=== PATIENT | female | born 2000 | race African-American/Black ===

== ENCOUNTER 2021-06-09 16:05 | Emergency (ER) | payer OTHER ==
[2021-06-09 16:12] VITALS: BP 144/84
[2021-06-09 17:46] LABS: BASOPHILS % (AUTO) 0.6 %; EOSINOPHILS # (AUTO) 0.1 10^3/uL (0.0-0.7); EOSINOPHILS % (AUTO) 1.6 %; HCT - HEMATOCRIT 38.8 % (37.0-47.0); HGB - HEMOGLOBIN 12.6 g/dL (12.0-16.0); LYMPHOCYTES # (AUTO) 1.8 10^3/uL (1.5-3.5); LYMPHOCYTES % (AUTO) 26.7 %; MEAN CORPUSCULAR HEMOGLOBIN 30.4 pg (27.0-31.0); MEAN CORPUSCULAR HGB CONC 32.5 g/dL (32.0-36.0); MEAN CORPUSCULAR VOLUME 93.7 fL (81.0-99.0); MEAN PLATELET VOLUME 10.5 fL (7.9-10.8); MONOCYTES # (AUTO) 0.6 10^3/uL (0.0-1.0); MONOCYTES % (AUTO) 8.5 %; NEUTROPHILS # (AUTO) 4.2 10^3/uL (1.5-6.6); NEUTROPHILS % (AUTO) 62.5 %; PLT - PLATELET COUNT 274 10^3/uL (130-450); RED BLOOD COUNT 4.14 10^6/uL (4.20-5.40); RED CELL DISTRIBUTION WIDTH 11.9 % (12.0-15.0); WHITE BLOOD COUNT 6.8 x10^3/uL (4.8-10.8)
[2021-06-09] MEDS ORDERED: LIDOCAINE VISCOUS 2% 15 ML UDC MM STA (17:57)
[2021-06-09] MEDS ORDERED: ONDANSETRON ODT 4 MG TABLET TL STA (17:57)
--- NOTE | 2021-06-09 17:59 | ED Physician Documentation ---
History of Present Illness - Stated complaint Stated Complaint: SHARP STOMACH PX - Chief complaint Chief Complaint: Abd Pain - Additonal information Additional information: 20-year-old female presents the emergency department for 2 days of epigastric abdominal pain. No nausea or vomiting. No melena. No lower abdominal pain. She reports the pain as nearly constant. She reports that she began taking sertraline for anxiety/depression about 2 weeks ago and noticed that she was getting daily headaches therefore she began taking Excedrin once or twice a day to help control the headaches. She denies tobacco or cannabis use rare alcohol use. Denies possibility of . LMP 2 weeks ago. Review of Systems Constitutional: denies: Fever, Chills Eyes: reports: Reviewed and negative Ears: reports: Reviewed and negative Throat: reports: Reviewed and negative Respiratory: reports: Reviewed and negative GI: reports: Abdominal Pain. denies: Nausea, Vomiting, Constipation, Diarrhea : reports: Reviewed and negative PD PAST MEDICAL HISTORY - Past Medical History Past Medical History: Yes Psych: Anxiety, Post traumatic stress disorder Musculoskeletal: Chronic back pain - Past Surgical History Past Surgical History: No - Present Medications Home Medications: Ambulatory Orders Medication Instructions Recorded Confirmed Pantoprazole [Protonix] 40 mg PO DAILY #30 tablet 06/09/21 Sertraline [Zoloft] 50 mg DAILY 06/09/21 06/09/21 Sucralfate [Carafate] 1 tablet PO ACHS #60 tablet 06/09/21 - Allergies Allergies/Adverse Reactions: Allergies Allergy/AdvReac Type Severity Reaction Status Date / Time No Known Drug Allergies Allergy Verified 06/09/21 16:12 - Social History Does the pt smoke?: No Smoking Status: Never smoker Does the pt have substance abuse?: No PD ED PE NORMAL - General General: Alert and oriented X 3, No acute distress - HEENT HEENT: PERRL - Neck Neck: Supple, no meningeal sign - Cardiac Cardiac: RRR, No murmur - Respiratory Respiratory: Clear bilaterally - Abdomen Abdomen: Normal bowel sounds, Soft, Non distended. No: Non tender (Mild epigastric tenderness without guarding or rebound. Negative Gatica's. No lower abdominal tenderness elicited.) - Back Back: No CVA TTP, No spinal TTP Results - Vitals Vitals: Vital Signs - 24 hr 06/09/21 16:10 Temperature 36.5 C Heart Rate 76 Respiratory 16 Rate Blood Pressure 144/84 H O2 Saturation 99 Oxygen O2 Source Room air - Labs Labs: Laboratory Tests 06/09/21 06/09/21 17:42 17:42 WBC 6.8 RBC 4.14 L Hgb 12.6 Hct 38.8 MCV 93.7 MCH 30.4 MCHC 32.5 RDW 11.9 L Plt Count 274 MPV 10.5 Neut # (Auto) 4.2 Lymph # (Auto) 1.8 Cecil # (Auto) 0.6 Eos # (Auto) 0.1 Baso # (Auto) 0.0 Absolute Nucleated RBC 0.00 Nucleated RBC % 0.0 Sodium 136 Potassium 3.7 Chloride 99 L Carbon Dioxide 28 Anion Gap 9.0 BUN 12 Creatinine 1.1 H Estimated GFR (MDRD) 75 L Glucose 105 H Calcium 9.2 Total Bilirubin 0.6 AST 23 ALT 17 Alkaline Phosphatase 46 Total Protein 7.7 Albumin 4.0 Globulin 3.7 Albumin/Globulin Ratio 1.1 Lipase 25 PD MEDICAL DECISION MAKING - ED course Complexity details: reviewed results, considered differential, d/w patient ED course: 20-year-old female presents the emergency department for evaluation of epigastric abdominal pain that began a week ago when she started taking Excedrin which she began taking for headaches that began after she started taking sertraline. She has no melena or hematochezia. No hematic emesis. She has not had any vomiting but does have some nausea. No pertinent past medical history with exception of the anxiety/depression. No dysuria urgency or frequency. LMP 2 weeks ago. Patient was getting lidocaine and Zofran here in the ER with good resolution of symptoms. Given the lack of focal abdominal tenderness or peritoneal exam imaging is deferred. She will be started on Carafate as well as Protonix. Advise close follow-up with PCP and avoidance of Excedrin moving forward Departure - Departure Disposition: 01 Home, Self Care Clinical Impression: Epigastric pain Condition: Stable Record reviewed to determine appropriate education?: Yes Prescriptions: Sucralfate [Carafate] 1 tablet PO ACHS #60 tablet Pantoprazole [Protonix] 40 mg PO DAILY #30 tablet Comments: Latesha I suspect that the pain you have in your stomach is gastritis most likely secondary to Excedrin overuse that you are taking for your headaches that have developed after starting the sertraline. It is important you follow-up with your primary doctor. Stopping the sertraline may be advised since it is causing headaches. To help with the stomach pain I would like you to fill the prescription for the Protonix and take every day. I would also like you to fill prescription for the Carafate and take at night. This will help coat the stomach. Please schedule an appointment with your primary doctor. If your symptoms are not getting better you may benefit from referral to a paint line production supervisor for an endoscopy or scoping of your stomach.
[2021-06-09 18:02] LABS: ALBUMIN/GLOBULIN RATIO 1.1 (1.0-2.2); BILIRUBIN,TOTAL 0.6 mg/dL (0.2-1.0); CALCIUM 9.2 mg/dL (8.5-10.3); CREATININE 1.1 mg/dL (0.4-1.0); POTASSIUM 3.7 mmol/L (3.5-5.0); TOTAL PROTEIN 7.7 g/dL (6.7-8.2)
== END 2021-06-09 19:01 | disposition home or self-care (01) ==
LOC: ED 16:05
DX: R10.13 Epigastric pain (principal)
CPT/HCPCS: 36415; 80053; 83690; 85025; 99283; Q0162

== ENCOUNTER 2022-06-13 15:37 | Emergency (ER) | payer OTHER ==
[2022-06-13 15:43] VITALS: BP 137/82
--- NOTE | 2022-06-13 15:52 | ED Physician Documentation ---
PD HPI UPPER EXT INJURY - Stated complaint Stated Complaint: R FINGER SMASHED - Chief complaint Chief Complaint: Laceration - History obtained from History obtained from: Patient - History of Present Illness Location: Right, Finger (middle and ring fingers smashed with heavy metal object at work.) Type of injury: Blunt / blow Where injury occurred: Work (she was lifting a heavy object and it fell onto her fingers suddenly.) Timing - onset: Today Timing - details: Abrupt onset, Still present Worsened by: Moving, Palpating Associated symptoms: Swelling. No: Weakness, Numbness Similar symptoms before: Has not had sx before Review of Systems Skin: reports: Laceration (s) Neurologic: denies: Focal weakness, Numbness PD PAST MEDICAL HISTORY - Past Medical History Past Medical History: No Cardiovascular: None Respiratory: None Neuro: None Endocrine/Autoimmune: None GI: None COMMERCIAL AGENT: None : None HEENT: None Psych: Anxiety, ADD/ADHD, Post traumatic stress disorder Musculoskeletal: Chronic back pain Derm: None - Past Surgical History Past Surgical History: No - Present Medications Home Medications: Ambulatory Orders Medication Instructions Recorded Confirmed Multivitamin 1 each PO DAILY 06/13/22 06/13/22 - Allergies Allergies/Adverse Reactions: Allergies Allergy/AdvReac Type Severity Reaction Status Date / Time No Known Drug Allergies Allergy Verified 06/13/22 15:39 - Social History Does the pt smoke?: No Smoking Status: Never smoker Does the pt drink ETOH?: No Does the pt have substance abuse?: No - Immunizations Immunizations are current?: Yes PD ED PE NORMAL - Vitals Vital signs reviewed: Yes - General General: Alert and oriented X 3, Well developed/nourished, Other (appears uncomfortable due to finger pain middle finger mainly.) - Extremities Extremities: Other (middle finger with tenderness and swelling, with small flap of partial thickness skin lac. No pain at PIP nor MCP. ring finger also with some tenderness. ) - Neuro Neuro: Alert and oriented X 3, No motor deficit, No sensory deficit Results - Vitals Vitals: Vital Signs - 24 hr 06/13/22 15:40 Temperature 36.4 C L Heart Rate 91 Respiratory 16 Rate Blood Pressure 137/82 H O2 Saturation 98 Oxygen O2 Source Room air - Rads (name of study) fingers right Radiology: Prelim report reviewed (no fractures), See rad report Procedures - Regional nerve block Nerve block site: Digital - note digit(s) (right middle finger) Right / left: Right Nerve block anesthesia: Lidocaine 1% Nerve block aftercare: Excellent anesthesia, No complications PD MEDICAL DECISION MAKING - ED course Complexity details: re-evaluated patient (loose skin trimmed off to allow good cleaning and healing. ), considered differential (contusion and can get xray to ensure no fracture. ), d/w patient Departure - Departure Disposition: 01 Home, Self Care Clinical Impression: Skin avulsion Finger contusion Qualifiers: Encounter type: initial encounter Finger: middle finger Damage to nail status: without damage Laterality: right Qualified Code(s): S60.031A - Contusion of right middle finger without damage to nail, initial encounter Condition: Stable Record reviewed to determine appropriate education?: Yes Instructions: ED Contusion Finger Comments: Your x-ray is good without any signs of fractures. The small laceration on the fingertip should heal without any need for stitching etc. Clean the area with soap and water once or twice daily and apply antibiotic ointment or ointment. Otherwise bandage and keep it clean and dry. Finger splint as needed for the next few days for comfort. Ibuprofen 2-3 times daily with food. Add Tylenol every 4 hours if needed for pain. Recheck if signs of infection otherwise I would anticipate this doing better over the next few days and back to normal use and likely 3 to 5 days. Forms: Activity restrictions Discharge Date/Time: 06/13/22 17:04
[2022-06-13] MEDS ORDERED: IBUPROFEN 600 MG TABLET PO STA (16:07)
[2022-06-13] MEDS ORDERED: MUPIROCIN 2% OINT 1 GM TOP STA (16:31)
--- NOTE | 2022-06-13 16:38 | XRAY Report ---
PROCEDURE: Finger(s) RT INDICATIONS: smashed finger with heavy object TECHNIQUE: AP hand, 3 views of the third finger(s) acquired. COMPARISON: None FINDINGS: Bones: No fractures or dislocations. No suspicious bony lesions. Soft tissues: No suspicious soft tissue calcifications. IMPRESSION: No visualized acute fracture or dislocation. However, occult injury cannot be excluded. Recommend natividad rt interval imaging follow-up in 7-10 days as clinically indicated for additional evaluation. Reviewed by: Nerissa Slade MD on 06/13/2022 4:36 PM PDT Approved by: Nerissa Slade MD on 06/13/2022 4:36 PM PDT Station ID: [id number]
== END 2022-06-13 17:04 | disposition home or self-care (01) ==
LOC: ED 15:37
DX: S60.031A Contusion of right middle finger without damage to nail, initial encounter (principal); W20.8XXA Other cause of strike by thrown, projected or falling object, initial encounter; X50.0XXA Overexertion from strenuous movement or load, initial encounter; Y99.0 Civilian activity done for income or pay
CPT/HCPCS: 64450; 73140; 99283; A9270